=== PATIENT | male | born 1980 | race Caucasian/White ===

== ENCOUNTER 2018-10-14 08:17 | Emergency (ER) | payer MEDICAID ==
[~2018-10-14] VITALS: Ht 170.2 cm; Wt 68.0 kg
[2018-10-14 09:13] LABS: EOSINOPHILS % 0.3 % (0.0-5.0); HEMATOCRIT. 39.1 % (42.0-52.0); HEMOGLOBIN. 13.2 g/dL (14.0-18.0); LYMPHOCYTES % 16.6 % (20.0-50.0); MEAN CORPUSCULAR HEMOGLOBIN 30.5 pg (28.0-32.0); MEAN CORPUSCULAR VOLUME 90.4 fL (80.0-94.0); MONOCYTES % 11.8 % (2.0-8.0); NEUTROPHILS % 70.3 % (40.0-76.0); PLATELET 263 x1000/uL (130-400); RED BLOOD CELL COUNT 4.32 mill/uL (4.7-6.1); RED CELL DISTRIBUTION WIDTH 13.9 % (11.6-14.6)
[2018-10-14 09:17] LABS: CLARITY URINE CLEAR (CLEAR); COLOR URINE YELLOW (YELLOW); KETONES URINE NEGATIVE (NEGATIVE); LEUKOCYTE ESTERASE URINE NEGATIVE (NEGATIVE); NITRITE URINE NEGATIVE (NEGATIVE); OCCULT BLOOD URINE NEGATIVE (NEGATIVE); PH URINE 6.5 (4.5-8.0); PROTEIN URINE NEGATIVE (NEGATIVE); SPECIFIC GRAVITY URINE 1.002 (1.005-1.030); UROBILINOGEN URINE 0.2 E.U./dL (0.2-1.0)
[2018-10-14 09:19] LABS: CHLORIDE 98 mEq/L (98-107)
[2018-10-14 09:23] LABS: ETHANOL BLOOD < 10 mg/dL
[2018-10-14 10:06] LABS: *AMPHETAMINES SCREEN URINE NEGATIVE (NEGATIVE); *BENZODIAZEPINES SCREEN URINE NEGATIVE (NEGATIVE); *COCAINE SCREEN URINE NEGATIVE (NEGATIVE); METHADONE URINE SCREEN NEGATIVE (NEGATIVE); OPIATES URINE SCREEN NEGATIVE (NEGATIVE)
[2018-10-14 10:07] LABS: CANNABINOID URINE SCREEN NEGATIVE (NEGATIVE); PHENCYCLIDINE URINE SCREEN NEGATIVE (NEGATIVE)
[2018-10-14 10:10] LABS: *BARBITURATES SCREEN URINE NEGATIVE (NEGATIVE)
[2018-10-14 12:03] VITALS: BP 114/76
== END 2018-10-14 12:05 | disposition home or self-care (01) ==
LOC: EDBD 08:30 → ER 08:30
DX: R07.89 Other chest pain (principal); I10 Essential (primary) hypertension; G40.909 Epilepsy, unspecified, not intractable, without status epilepticus; F10.229 Alcohol dependence with intoxication, unspecified; Y90.0 Blood alcohol level of less than 20 mg/100 ml
CPT/HCPCS: 36415; 71045; 80053; 80305; 81003; 82962; 85025; 99284; G0482

== ENCOUNTER 2020-03-11 18:26 | Emergency (ER) | payer MEDICAID ==
[~2020-03-11] VITALS: Ht 162.6 cm; Wt 60.0 kg
[2020-03-11] MEDS ORDERED: SODIUM CHLORIDE 0.9% 1,000 ML IV ONE ×2 (19:00→22:00)
[2020-03-12 04:45] VITALS: BP 98/67
== END 2020-03-12 04:47 | disposition home or self-care (01) ==
LOC: ER 18:26
DX: F10.229 Alcohol dependence with intoxication, unspecified (principal); Y90.0 Blood alcohol level of less than 20 mg/100 ml
CPT/HCPCS: 36415; 70450; 71045; 80053; 80305; 80307; 80320; 80329; 82140; 83690; 85025; 85610; 93005; 96360; 96361; 96374; 99285; J2405; J7030; Z7610; 82962; 96375; J2060; G0480

== ENCOUNTER 2020-03-12 17:14 | Emergency (ER) | payer MEDICAID ==
[~2020-03-12] VITALS: Ht 172.7 cm; Wt 75.0 kg
[2020-03-12] MEDS ORDERED: SODIUM CHLORIDE 0.9% 1,000 ML IV ONE (18:09)
[2020-03-12] MEDS ORDERED: ONDANSETRON HCL 4MG/2ML INJ IV STA (18:09)
[2020-03-12 19:43] LABS: BASOPHILS % 0.7 % (0.0-2.0); EOSINOPHILS % 2.5 % (0.0-5.0); HEMATOCRIT. 34.5 % (42.0-52.0); HEMOGLOBIN. 11.7 g/dL (14.0-18.0); LYMPHOCYTES % 27.8 % (20.0-50.0); MEAN CORPUSCULAR HEMOGLOBIN 29.5 pg (28.0-32.0); MEAN CORPUSCULAR VOLUME 87.1 fL (80.0-94.0); MEAN PLATELET VOLUME 7.9 fl (7.4-10.4); MONOCYTES % 7.1 % (2.0-8.0); NEUTROPHILS % 61.9 % (40.0-76.0); PLATELET 216 x1000/uL (130-400); RED BLOOD CELL COUNT 3.97 mill/uL (4.7-6.1); RED CELL DISTRIBUTION WIDTH 15.4 % (11.6-14.6)
[2020-03-12 19:47] LABS: CHLORIDE 108 mEq/L (98-107)
[2020-03-12 19:49] LABS: INR 0.9; PROTHROMBIN TIME 9.7 sec (9.6-11.0)
[2020-03-12 20:21] LABS: ETHANOL BLOOD 369 mg/dL
[2020-03-12 22:42] LABS: *AMPHETAMINES SCREEN URINE NEGATIVE (NEGATIVE); *BARBITURATES SCREEN URINE NEGATIVE (NEGATIVE); *BENZODIAZEPINES SCREEN URINE NEGATIVE (NEGATIVE); *COCAINE SCREEN URINE NEGATIVE (NEGATIVE); METHADONE URINE SCREEN NEGATIVE (NEGATIVE)
[2020-03-12 22:43] LABS: CANNABINOID URINE SCREEN NEGATIVE (NEGATIVE); OPIATES URINE SCREEN NEGATIVE (NEGATIVE); PHENCYCLIDINE URINE SCREEN NEGATIVE (NEGATIVE)
[2020-03-13] MEDS ORDERED: LORAZEPAM 2MG/ML CPJ IV ONE (06:15)
[2020-03-13] MEDS ORDERED: SODIUM CHLORIDE 0.9% 1,000 ML IV ONE (06:28)
[2020-03-13] MEDS ORDERED: CHLORDIAZEPOXIDE 25MG CAPSULE PO ONE (07:15)
[2020-03-13 09:55] VITALS: BP 102/60
== END 2020-03-13 10:10 | disposition home or self-care (01) ==
LOC: ER 17:18
DX: F10.229 Alcohol dependence with intoxication, unspecified (principal); G40.909 Epilepsy, unspecified, not intractable, without status epilepticus; Y90.8 Blood alcohol level of 240 mg/100 ml or more
CPT/HCPCS: 36415; 70450; 71045; 80053; 80305; 80307; 80320; 80329; 82140; 82962; 83690; 85025; 85610; 93005; 96361; 96374; 96375; 99285; J2060; J2405; J7030; Z7610; G0480

== ENCOUNTER 2020-03-17 19:27 | Emergency (ER) | payer MEDICAID ==
[~2020-03-17] VITALS: Ht 165.1 cm; Wt 51.0 kg
[2020-03-17 20:26] LABS: BASOPHILS % 0.7 % (0.0-2.0); EOSINOPHILS % 2.7 % (0.0-5.0); HEMATOCRIT. 38.2 % (42.0-52.0); LYMPHOCYTES % 44.7 % (20.0-50.0); MEAN CORPUSCULAR HEMOGLOBIN 29.7 pg (28.0-32.0); MEAN CORPUSCULAR VOLUME 87.3 fL (80.0-94.0); MEAN PLATELET VOLUME 8.3 fl (7.4-10.4); MONOCYTES % 9.8 % (2.0-8.0); NEUTROPHILS % 42.1 % (40.0-76.0); PLATELET 176 x1000/uL (130-400); RED BLOOD CELL COUNT 4.37 mill/uL (4.7-6.1); RED CELL DISTRIBUTION WIDTH 15.3 % (11.6-14.6)
[2020-03-17 20:30] LABS: CHLORIDE 108 mEq/L (98-107)
[2020-03-17 21:02] LABS: ETHANOL BLOOD 410 mg/dL
[2020-03-17] MEDS ORDERED: HALOPERIDOL LACTATE 5MG/ML VIAL IM ONE (21:30)
[2020-03-17] MEDS ORDERED: HALOPERIDOL LACTATE 5MG/ML VIAL IM SCH (22:23)
[2020-03-17] MEDS ORDERED: ONDANSETRON HCL 4MG/2ML INJ IV ONE (23:15)
[2020-03-18 05:07] VITALS: BP 107/64
== END 2020-03-18 05:23 | disposition home or self-care (01) ==
LOC: ER 19:27
DX: F10.229 Alcohol dependence with intoxication, unspecified (principal); G40.909 Epilepsy, unspecified, not intractable, without status epilepticus; Y90.8 Blood alcohol level of 240 mg/100 ml or more
CPT/HCPCS: 36415; 80048; 80320; 84484; 85025; 93005; 96372; 96374; 99285; J1630; J2405; G0480